=== PATIENT | female | born 1985 | race Native Hawaiian/Other Pacific Islander ===

== ENCOUNTER 2021-11-29 14:52 | Outpatient (CLI) | payer MEDICAID ==
[2021-11-29 16:18] LABS: Basophils % (Auto) 0.5 % (0.0-1.8); Eosinophils # (Auto) 0.3 K/mm3 (0.0-0.4); Eosinophils % (Auto) 4.6 % (0.0-4.3); Hematocrit 34.6 % (30.3-42.9); Hemoglobin 11.2 gm/dl (10.1-14.3); Lymphocytes # (Auto) 2.5 K/mm3 (1.2-5.4); Lymphocytes % (Auto) 34.1 % (13.4-35.0); Mean Corpuscular HGB Conc 32 % (30-34); Mean Corpuscular Volume 73 fl (79-97); Monocytes # (Auto) 0.4 K/mm3 (0.0-0.8); Monocytes % (Auto) 5.8 % (0.0-7.3); Platelet Count 335 K/mm3 (140-440); Red Blood Count 4.76 M/mm3 (3.65-5.03); Red Cell Distribution Width 17.3 % (13.2-15.2)
[2021-11-29 16:28] LABS: Alanine Aminotransferase 21 units/L (7-56); Albumin 4.3 g/dL (3.9-5); Blood Urea Nitrogen 10 mg/dL (7-17); Calcium 9.6 mg/dL (8.4-10.2); Chol/HDL Ratio 4.39 %; HDL Cholesterol 38 mg/dL (40-59); Hemolysis Index 1; LDL Cholesterol,Direct 105 mg/dL (50-130)
[2021-11-29 16:46] LABS: BUN/Creatinine Ratio 20
[2021-11-29 17:52] LABS: Bacteria,Urine 1+ /HPF (Negative); Mucus,Urine 3+ /HPF
[2021-11-29 18:33] LABS: WBC,Urine > 182.0 /HPF (0.0-6.0)
[2021-11-29 19:49] LABS: Bilirubin,Urine Negative (Negative); Blood,Urine 1+ (Negative); Color,Urine Yellow (Yellow)
[2021-11-29 19:50] LABS: Protein,Urine <15 mg/dL mg/dL (Negative)
== END 2021-11-29 14:53 | disposition home or self-care (01) ==
LOC: LABHHL 14:52
PROVIDERS: ATTEND Internal Medicine
DX: Z00.00 Encounter for general adult medical examination without abnormal findings (principal); E66.9 Obesity, unspecified; R53.83 Other fatigue; E55.9 Vitamin D deficiency, unspecified; D64.9 Anemia, unspecified; N39.0 Urinary tract infection, site not specified
CPT/HCPCS: 36415; 80053; 80061; 81001; 82306; 82607; 82728; 83036; 84443; 85025

== ENCOUNTER 2021-12-18 06:12 | Day surgery (SDC) | payer MEDICAID ==
[2021-12-18] MEDS ORDERED: LACTATED RINGERS 1,000 ML ONE (06:46)
--- NOTE | 2021-12-18 07:24 | Anesthesia Day of Surgery ---
Anesthesia Day of Surgery - Day of Surgery Patient Examined: Yes Patient H&P Reviewed: Yes Patient is NPO: Yes
--- NOTE | 2021-12-18 07:24 | Anesthesia Consultation ---
Anesthesia Consult and Med Hx Date of service: 12/18/21 - Airway Anesthetic Teeth Evaluation: Good ROM Head & Neck: Adequate Mental/Hyoid Distance: Adequate Mallampati Class: Class II Intubation Access Assessment: Probably Good - Pulmonary Exam CTA: Yes - Cardiac Exam Cardiac Exam: RRR - Pre-Operative Health Status ASA Pre-Surgery Classification: ASA2, ASA3 Proposed Anesthetic Plan: General - Pulmonary Hx Smoking: Yes (STOPPED SMOKING 1 WEEK AGO) Hx Asthma: No COPD: No Hx Pneumonia: No Hx Sleep Apnea: No - Cardiovascular System Hx Hypertension: No Hx Cardia Arrhythmia: No - Central Nervous System Hx Back Pain: Yes Hx Psychiatric Problems: No - Gastrointestinal Hx Gastroesophageal Reflux Disease: Yes (occasionally per patient) - Endocrine Hx Renal Disease: No Hx Liver Disease: No Hx Thyroid Disease: No - Hematic Hx Sickle Cell Disease: No - Other Systems Hx Alcohol Use: Yes (RARELY) Hx Substance Use: No Hx Cancer: No Hx Obesity: Yes (BMI 40) - Additional Comments Anesthesia Medical History Comments: No GAC. No FHAC.
[2021-12-18] MEDS ORDERED: HYDROmorphone 0.5 MG/0.5 ML INJ IV PRN (07:35)
[2021-12-18] MEDS ORDERED: ONDANSETRON 4 MG/2 ML INJ IV PRN ×2 (07:35→10:46)
[2021-12-18] MEDS ORDERED: BUPIVACAINE/PF (0.5%) 5 MG/1 ML 30 ML VIAL INFILTRATI ONE ×2 (07:43→09:54)
[2021-12-18] MEDS ORDERED: LIDOCAINE (1%) 10 MG/1 ML VIAL 20 ML MDV ONE (07:43)
[2021-12-18] MEDS ORDERED: LACTATED RINGERS 1,000 ML IV SCH (07:45)
[2021-12-18] MEDS ORDERED: SUCCINYLCHOLINE CHLORIDE 200 MG/10 ML INJ MDV ONE (07:47)
[2021-12-18] MEDS ORDERED: ePHEDrine SULFATE 50 MG/1 ML INJ ONE (07:47)
[2021-12-18] MEDS ORDERED: LIDOCAINE MPF (2%) 20 MG/1 ML VIAL 5 ML ONE (07:47)
[2021-12-18] MEDS ORDERED: ROCURONIUM 50 MG/5 ML INJ IV ONE (07:47)
[2021-12-18] MEDS ORDERED: HYDROmorphone 1 MG/1 ML INJ ONE (07:47)
[2021-12-18] MEDS ORDERED: propofoL 200 MG/20 ML VIAL IV ONE (07:47)
[2021-12-18] MEDS ORDERED: MIDAZOLAM 2 MG/2 ML INJ IV NR (08:00)
[2021-12-18] MEDS ORDERED: CELECOXIB 200 MG CAP PO NR ×2 (08:00)
[2021-12-18] MEDS ORDERED: FAMOTIDINE 20 MG/2 ML INJ IV NR (08:00)
[2021-12-18] MEDS ORDERED: ACETAMINOPHEN 500 MG TAB PO NR (08:00)
[2021-12-18] MEDS ORDERED: SODIUM CHLORIDE 0.9% IRR 1,500 ML BOTTLE IR ONE (08:52)
[2021-12-18] MEDS ORDERED: NEOSTIGMINE 10MG/10 ML INJ MDV ONE (08:55)
[2021-12-18] MEDS ORDERED: GLYCOPYRROLATE 0.4 MG/2 ML INJ ONE (08:55)
[2021-12-18] MEDS ORDERED: MUPIROCIN 2% OINT 22 GM ONE (09:00)
[2021-12-18] MEDS ORDERED: LIDOCAINE JELLY (2%) 5 ML TOPICAL ONE (09:00)
[2021-12-18] MEDS ORDERED: LIDOCAINE 2% UROJECT 10 ML JELLY UR ONE (09:06)
[2021-12-18] MEDS ORDERED: DIBUCAINE 1% OINT 28 GM ONE (09:12)
[2021-12-18] MEDS ORDERED: DIBUCAINE 1% OINT 28 GM PR ONE (09:19)
[2021-12-18] MEDS ORDERED: SUGAMMADEX SODIUM 200 MG/2 ML VIAL IV ONE (09:29)
--- NOTE | 2021-12-18 09:46 | Short Stay Summary ---
Short Stay Documentation Date of service: 12/18/21 - History Principal diagnosis: bleeding internal hemorrhoids H&P: obtained from office - Allergies and Medications Current Medications: Allergies No Known Allergies Allergy (Unverified 12/14/21 10:28) Home Medications Medication Instructions Recorded Confirmed Last Taken Type No Known Home Medications [No 12/14/21 12/14/21 Unknown History Reported Home Medications] Active Medications Acetaminophen (Acetaminophen 500 Mg Tab) 1,000 mg PO ONCE NR Stop: 12/18/21 13:00 Hydromorphone HCl (Hydromorphone 0.5 Mg/0.5 Ml Inj) 0.25 mg IV Q10MIN PRN PRN Reason: Pain, Moderate (4-6) Stop: 12/18/21 20:00 Hydromorphone HCl (Hydromorphone 0.5 Mg/0.5 Ml Inj) 0.5 mg IV Q10MIN PRN PRN Reason: Pain , Severe (7-10) Stop: 12/18/21 20:00 Lactated Ringer's (Lactated Ringers) 1,000 mls @ 125 mls/hr IV DIRECT HERNAN Stop: 12/18/21 20:00 Midazolam HCl (Midazolam 2 Mg/2 Ml Inj) 2 mg IV PREOP NR Stop: 12/18/21 23:59 - Brief post op/procedure progress note Date of procedure: 12/18/21 Pre-op diagnosis: bleeding internal hemorrhoids Post-op diagnosis: other (bleeding internal hemorrhoids, anal fissures, perianal skin tag) Procedure: Rectal exam under anesthesia, transanal dearterialization of bleeding internal hemorrhoids, excision of perianal skin tag Anesthesia: GETA, local Findings: Grade 2 bleeding internal hemorrhoids Moderate sized anal fissure in 6 oclock and 1 oclock position. Tiny perianal skin tag at 5 oclock position Surgeon: REESE MURILLO Aircraft Engine Mechanic: LIZA SHAIKH Estimated blood loss: other (30 cc) Pathology: list (perianal skin tag) Specimen disposition: to lab Condition: stable - Hospital course Hospital course: Pt observed in PACU and discharged to home in stable condition when criteria met - Disposition Condition at discharge: Good Short Stay Discharge Plan Activity: no restrictions Diet: regular Additional Instructions: see printed instructions Follow up with: VINNY ORTEGA MD [Primary Care Provider] - 7 Days REESE MURILLO DO [Staff Physician] - 14 Days Prescriptions: Docusate Sodium [Colace] 100 mg PO BID #30 capsule polyethylene glycoL 3350 [Miralax 3350] 17 gm PO QDAY #30 packet HYDROcodone/APAP 5-325 [Butler 5/325] 1 each PO Q6HR PRN #20 tablet PRN Reason: Pain , Severe (7-10)
[2021-12-18] MEDS ORDERED: LIDOCAINE (1%) 10 MG/1 ML VIAL 20 ML MDV INFILTRATI ONE (09:54)
[2021-12-18] MEDS ORDERED: KETOROLAC 30 MG/1 ML INJ IV SCH (10:00)
[2021-12-18] MEDS: HYDROmorphone 0.5 MG/0.5 ML INJ IV PRN ×2 (10:02→10:17)
[2021-12-18] MEDS ORDERED: HYDROcodone/ACETAMINOPHEN 5-325 MG TAB PO PRN (10:30)
[2021-12-18 10:32] VITALS: BP 137/84
[2021-12-18] MEDS ORDERED: ONDANSETRON 4 MG/2 ML INJ ONE (10:43)
--- NOTE | 2021-12-18 13:31 | Operative Report ---
Operative Report Operative Report: Date of procedure: 12/18/21 Pre-op diagnosis: bleeding internal hemorrhoids Post-op diagnosis: other (bleeding internal hemorrhoids, anal fissures, perianal skin tag) Procedure: Rectal exam under anesthesia, transanal dearterialization of bleeding internal hemorrhoids, excision of perianal skin tag Anesthesia: GETA, local Findings: Grade 2 bleeding internal hemorrhoids Moderate sized anal fissure in 6 oclock and 1 oclock position. Tiny perianal skin tag at 5 oclock position Surgeon: REESE MURILLO Field Applications Specialist: LIZA SHAIKH Estimated blood loss: other (30 cc) Pathology: list (perianal skin tag) Specimen disposition: to lab Condition: stable Hospital course: Pt observed in PACU and discharged to home in stable condition when criteria met Condition at discharge: Good HPI and indication: Patient is a 36-year-old female who presented to the surgery clinic for evaluation of rectal bleeding. Patient was having bleeding from hemorrhoids for 1 month. She denied constipation or rectal pain. On exam she was found to have internal hemorrhoids. It was recommended that she undergo transarterial dearterialization of the hemorrhoids as well as rectal exam under anesthesia. All risks, benefits, alternatives to surgery were discussed and questions answered. Consent was obtained. Procedure in detail: The patient was identified in the preoperative area and taken to the operating. Anesthesia was induced on the patient's stretcher and she was then placed in prone jackknife position on the operating room table. The rectal area was prepped and draped in the usual sterile fashion. Timeout was performed. A rectal exam was performed which revealed moderate sized anal fissure at the 6:00 and 1 o'clock position. There is also a's tiny perianal skin tag at the 5 o'clock position. There were circumferential grade 2 hemorrhoids with areas of denuded mucosa and irritation. The Doppler anoscope was then used to identify hemorrhoidal arteries at 1, 3, 5, 7, 9, and 11:00 positions. 2-0 Vicryl was used to perform the dearterialization in each of these positions. Hemorrhoidal pexy was performed circumferentially. The perianal skin tag was excised using electrocautery. The skin was approximated using a 3-0 chromic interrupted stitch. An intersphincteric nerve block was then performed with half percent Marcaine and 1% lidocaine. Gelfoam gauze coated in the Dibucaine was inserted into the rectum. Hemostasis was ensured. A rolled up fluff gauze was placed over the anus and covered with a ABD pad, secured with tape and mesh underwear. At the end of the case all sponge, instrument, sharp counts were correct x2. Patient was awoken from anesthesia, transferred to the stretcher, extubated and taken to PACU in stable condition.
--- NOTE | 2021-12-18 16:02 | Post Anesthesia Evaluation ---
- Post Anesthesia Evaluation Patient Participated: Yes Airway Patent: Yes Stable Respiratory Function: Yes Nausea/Vomiting: No Temp > 96.8F: Yes Pain Manageable: Yes Adequeate Hydration: Yes Anesthesia Complications: No Block Receding Appropriately: Not Applicable Patient on Ventilator: No
== END 2021-12-18 11:05 | disposition home or self-care (01) ==
LOC: OR 06:12
PROVIDERS: ATTEND Surgery
DX: K64.8 Other hemorrhoids (principal); K64.4 Residual hemorrhoidal skin tags; K60.2 Anal fissure, unspecified; A63.0 Anogenital (venereal) warts; E66.9 Obesity, unspecified; K21.9 Gastro-esophageal reflux disease without esophagitis; Z87.891 Personal history of nicotine dependence; Z79.899 Other long term (current) drug therapy; Z90.49 Acquired absence of other specified parts of digestive tract; Z98.891 History of uterine scar from previous surgery; Z72.89 Other problems related to lifestyle; Z98.890 Other specified postprocedural states; Z68.41 Body mass index [BMI] 40.0-44.9, adult
CPT/HCPCS: 46948; 81025; 88305; J0330; J1170; J1815; J1885; J2250; J2405; J2704; J2710; J3490; J7120; U0003; 88304